=== PATIENT | male | born 1960 | race Caucasian/White ===

== ENCOUNTER 2018-07-22 17:43 | Emergency (ER) | payer MEDICAID ==
[~2018-07-22] VITALS: Ht 182.9 cm; Wt 94.8 kg
[2018-07-22 17:52] VITALS: BP 139/96
[2018-07-22] MEDS: NACL 0.9% 1,000 ML IV SCH (18:38)
[2018-07-22] MEDS: GLYCOPYRROLATE 0.2 MG/ML VIAL IV ONE (18:41)
[2018-07-22] MEDS: PROMETHAZINE 25 MG/ML VIAL IM ONE (18:42)
[2018-07-22] MEDS: ONDANSETRON 4 MG/2 ML VIAL IVP ONE (18:44)
[2018-07-22] MEDS: FAMOTIDINE 20 MG/2 ML VIAL IVP ONE (18:45)
[2018-07-22 19:03] LABS: BASOPHILS % (AUTO) 0.4 % (0.0-2.0); EOSINOPHILS % (AUTO) 0.8 % (0.0-4.0); HEMATOCRIT 46.5 % (36-52); HEMOGLOBIN 15.4 g/dL (12.0-18.0); LYMPHOCYTES # (AUTO) 2.5 K/uL (2.0-11.5); LYMPHOCYTES % (AUTO) 42.7 % (20.5-51.1); MEAN CORPUSCULAR HEMOGLOBIN 28 pg (27-31); MEAN CORPUSCULAR HGB CONC 33 g/dL (33-37); MEAN CORPUSCULAR VOLUME 83.5 fL (80-94); MONOCYTES # (AUTO) 0.7 K/uL (0.8-1.0); MONOCYTES % (AUTO) 12.9 % (1.7-9.3); NEUTROPHILS # (AUTO) 2.5 K/uL (1.8-7.7); NEUTROPHILS % (AUTO) 43.2 % (42.2-75.2); PLATELET COUNT (AUTO) 271 K/uL (140-450); RED BLOOD CELL COUNT(AUTO) 5.57 MIL/uL (4.20-6.10); RED CELL DISTRIBUTION WIDTH 13.1 % (11.6-13.7); WHITE BLOOD COUNT (AUTO) 5.8 K/uL (4.8-10.8)
[2018-07-22] MEDS: NACL 0.9% 1,000 ML IV ONE (19:19)
[2018-07-22 19:39] LABS: ANION GAP 10.9 (8-16); CHLORIDE 103 mmol/L (98-107); GLUCOSE 95 mg/dL (74-106); POTASSIUM 3.9 mmol/L (3.5-5.1); SODIUM SERUM 137 mmol/L (136-145); UREA NITROGEN, BLOOD 15 mg/dL (7-18)
[2018-07-22 19:40] LABS: ALBUMIN 3.8 g/dL (3.4-5.0); AMYLASE 89 U/L (25-115); ASPARTATE AMINOTRANSFERASE 24 U/L (15-37); CREATININE 0.8 mg/dL (0.7-1.3); GFR ARICAN-AMERICAN 128 mL/min (>90); TOTAL BILIRUBIN 0.5 mg/dL (0.0-1.0)
[2018-07-22 19:44] LABS: BARBITURATE, URINE NEGATIVE ng/ml (NEG <=200); BENZODIAZEPINE, URINE NEGATIVE ng/mL (NEG <=200); CANNABINOID, URINE NEGATIVE ng/mL (NEG <=50); COCAINE, URINE NEGATIVE ng/mL (NEG <=300); OPIATE, URINE NEGATIVE ng/mL (NEG <=2000); PHENCYCLIDINE SCREEN,URINE NEGATIVE ng/mL (NEG <=25)
[2018-07-22 19:49] LABS: APPEARANCE,URINE CLEAR (CLEAR); BILIRUBIN,URINE NEGATIVE (NEGATIVE); BLOOD, URINE NEGATIVE (NEGATIVE); COLOR,URINE YELLOW (YELLOW); LEUKOCYTE ESTERASE ,URINE NEGATIVE (NEGATIVE); NITRITE, URINE NEGATIVE (NEGATIVE); PH,URINE 7.5 (5.0-9.0); UGLUCOSE NEGATIVE (NEGATIVE)
[2018-07-22 19:54] LABS: LIPASE 343 U/L (73-393)
[2018-07-22 20:45] VITALS: BP 111/72
== END 2018-07-22 20:45 | disposition home or self-care (01) ==
LOC: MED 17:43
DX: R10.9 Unspecified abdominal pain (principal); R11.2 Nausea with vomiting, unspecified; I10 Essential (primary) hypertension
CPT/HCPCS: 36415; 74176; 80053; 80305; 81003; 82150; 83690; 85025; 85610; 96361; 96372; 96374; 96375; 99284; G0482; J2405; J2550; J3490; J7030